=== PATIENT | male | born 2000 | race African-American/Black ===

== ENCOUNTER 2022-10-30 10:09 | Inpatient (IN) | payer OTHER ==
[2022-10-30 11:09] VITALS: BMI 21.9
[2022-10-30] MEDS ORDERED: IBUPROFEN 600 MG TABLET (FP) PO PRN (12:57)
[2022-10-30] MEDS ORDERED: ONDANSETRON *ODT* 4 MG TABLET SL PRN (12:57)
[2022-10-30] MEDS ORDERED: DICYCLOMINE HCL 10 MG CAPSULE PO PRN (12:57)
[2022-10-30] MEDS ORDERED: MAGNESIUM HYDROX 2400MG/30ML ORAL SUSPENSION 30 ML CUP PO PRN (12:57)
[2022-10-30] MEDS ORDERED: IBUPROFEN 400 MG TABLET (FP) PO PRN (12:57)
[2022-10-30] MEDS ORDERED: ACETAMINOPHEN 325 MG TABLET (FP) PO PRN (12:57)
[2022-10-30] MEDS ORDERED: BISMUTH SUBSALICYLATE 524 MG/30 ML PO PRN (12:57)
[2022-10-30] MEDS ORDERED: BENZONATATE 200 MG CAPSULE PO PRN (12:57)
[2022-10-30] MEDS ORDERED: BENZOCAINE/MENTHOL (CHLORASEPTIC ) LOZENGE MM PRN (12:57)
[2022-10-30] MEDS ORDERED: NALOXONE HCL 0.4 MG/ML VIAL IM PRN (12:57)
[2022-10-30] MEDS ORDERED: guaiFENesin 600 MG TABLET.ER (FP) PO PRN (12:57)
[2022-10-30] MEDS ORDERED: NALOXONE HCL (KLOXXADO) 8 MG SPRAY NS PRN (12:57)
[2022-10-30] MEDS ORDERED: POLYETHYLENE GLYCOL (HEALTHYLAX) 3350 17 GM PACKET PO PRN (12:57)
[2022-10-30] MEDS ORDERED: MAG HYDROX/AL HYDROX/SIMETH 30 ML UNIT-DOSE CUP PO PRN (12:57)
[2022-10-30] MEDS ORDERED: LOPERAMIDE HCL 2 MG CAPSULE PO PRN (12:57)
[2022-10-30] MEDS ORDERED: diazePAM 5 MG TABLET ONE (13:21)
[2022-10-30] MEDS: diazePAM 5 MG TABLET PO PRN ×2 (13:23→19:52)
[2022-10-30] MEDS ORDERED: ONDANSETRON *ODT* 4 MG TABLET ONE (13:34)
[2022-10-30] MEDS: diazePAM 5 MG TABLET PO SCH ×2 (17:04→22:08)
[2022-10-30] MEDS: THIAMINE HCL 100 MG TABLET (FP) PO SCH (22:07)
[2022-10-30] MEDS: MELATONIN 5 MG TABLETS PO SCH (22:07)
[2022-10-31] MEDS: diazePAM 5 MG TABLET PO SCH ×4 (05:28→22:02)
[2022-10-31] MEDS: PRENATAL VITAMINS W/ FOLIC ACID TABLET (FP) PO SCH (10:31)
[2022-10-31 11:42] LABS: CHLORIDE 105 mmol/L (98-107); POTASSIUM 3.8 mmol/L (3.5-5.1); SODIUM 140 mmol/L (136-145)
[2022-10-31 11:44] LABS: ALBUMIN 3.3 g/dl (3.4-5.0); ANION GAP 6 MMOL/L (8-16); CALCIUM 9.2 mg/dL (8.5-10.1); CO2 29 mmol/L (21-32); GLUCOSE,RANDOM 86 mg/dL (74-106)
[2022-10-31 11:45] LABS: BLOOD UREA NITROGEN 3.3 mg/dL (7-18); HEMATOCRIT 46.6 % (35.4-49); HEMOGLOBIN 15.1 GM/dL (11.7-16.9); MCH 31.8 pg (25.7-33.7); MCHC 32.4 g/dl (32.0-35.9); MEAN CELL VOLUME 98.1 fl (80-96); MEAN PLT VOLUME 7.1 fl (7.5-11.1); PLATELET COUNT 279 10^3/uL (134-434); RBC 4.76 M/mm3 (4.00-5.60); RDW 14.3 % (11.9-15.9); WHITE BLOOD COUNT 2.9 K/mm3 (4.0-10.0)
[2022-10-31 11:47] LABS: SGPT/ALT 91 U/L (13-61)
[2022-10-31 11:48] LABS: CREATININE 0.9 mg/dL (0.55-1.3); SGOT/AST 184 U/L (15-37)
[2022-10-31 11:49] LABS: BILIRUBIN,TOTAL 1.9 mg/dL (0.2-1); TOT PROT 7.1 g/dl (6.4-8.2)
[2022-10-31 11:50] LABS: ALK PHOS 129 U/L (45-117)
[2022-10-31] MEDS ORDERED: PNEUMOC 20-VAL CONJ-DIP CRM/PF 0.5 ML SYRINGE IM ONE (12:00)
[2022-10-31] MEDS: THIAMINE HCL 100 MG TABLET (FP) PO SCH (22:02)
[2022-10-31] MEDS: MELATONIN 5 MG TABLETS PO SCH (22:03)
[2022-11-01] MEDS: diazePAM 5 MG TABLET PO SCH ×3 (05:14→22:01)
[2022-11-01] MEDS: hydrOXYzine PAMOATE 25 MG CAPSULE (FP) PO PRN ×2 (05:16→10:19)
[2022-11-01] MEDS: METHOCARBAMOL 500 MG TABLET PO PRN (05:16)
[2022-11-01] MEDS: PRENATAL VITAMINS W/ FOLIC ACID TABLET (FP) PO SCH (10:19)
[2022-11-01] MEDS: diazePAM 5 MG TABLET PO PRN (10:19)
[2022-11-01] MEDS: THIAMINE HCL 100 MG TABLET (FP) PO SCH (22:00)
[2022-11-01] MEDS: MELATONIN 5 MG TABLETS PO SCH (22:01)
[2022-11-02] MEDS: diazePAM 5 MG TABLET PO SCH ×2 (05:27→17:28)
[2022-11-02] MEDS: hydrOXYzine PAMOATE 25 MG CAPSULE (FP) PO PRN (09:37)
[2022-11-02] MEDS: METHOCARBAMOL 500 MG TABLET PO PRN (09:37)
[2022-11-02] MEDS: PRENATAL VITAMINS W/ FOLIC ACID TABLET (FP) PO SCH (09:37)
[2022-11-02 12:22] LABS: POTASSIUM 4.1 mmol/L (3.5-5.1)
[2022-11-02 12:49] LABS: CREATININE 0.8 mg/dL (0.55-1.3)
[2022-11-02 12:53] LABS: ALBUMIN 2.9 g/dl (3.4-5.0)
[2022-11-02 12:54] LABS: BLOOD UREA NITROGEN 4.7 mg/dL (7-18); CALCIUM 8.4 mg/dL (8.5-10.1); TOT PROT 6.4 g/dl (6.4-8.2)
[2022-11-02 12:56] LABS: BILIRUBIN,TOTAL 0.8 mg/dL (0.2-1)
[2022-11-02] MEDS: MELATONIN 5 MG TABLETS PO SCH (22:00)
[2022-11-02] MEDS: THIAMINE HCL 100 MG TABLET (FP) PO SCH (22:00)
[2022-11-03] MEDS ORDERED: diazePAM 5 MG TABLET PO ONE (06:00)
[2022-11-03 09:07] VITALS: BP 137/66; PULSE 87; RESP 18; TEMP 97.9
[2022-11-03] MEDS: hydrOXYzine PAMOATE 25 MG CAPSULE (FP) PO PRN (10:02)
[2022-11-03] MEDS: PRENATAL VITAMINS W/ FOLIC ACID TABLET (FP) PO SCH (10:02)
== END 2022-11-03 11:15 | disposition home or self-care (01) | DRG 775 ==
LOC: YASAS 10:09 → Y6N 13:27
PROVIDERS: ADMIT Allergy & Immunology; ATTEND Surgery
PROC: HZ2ZZZZ Detoxification Services for Substance Abuse Treatment (ICD-10-PCS; principal; 2022-10-30)
DX: F10.230 Alcohol dependence with withdrawal, uncomplicated (principal); F41.9 Anxiety disorder, unspecified; M54.50 Low back pain, unspecified; G89.29 Other chronic pain; Z87.19 Personal history of other diseases of the digestive system
CPT/HCPCS: 36415; 80053; 80307; 85027; 86780; 87635; 87811; 90677; Q0162

== ENCOUNTER 2022-11-07 10:13 | Inpatient (IN) | payer OTHER ==
[2022-11-07 11:01] VITALS: BMI 21.8
[2022-11-07] MEDS ORDERED: DICYCLOMINE HCL 10 MG CAPSULE PO PRN (11:26)
[2022-11-07] MEDS ORDERED: IBUPROFEN 600 MG TABLET (FP) PO PRN (11:26)
[2022-11-07] MEDS ORDERED: NALOXONE HCL 0.4 MG/ML VIAL IM PRN (11:26)
[2022-11-07] MEDS ORDERED: MAGNESIUM HYDROX 2400MG/30ML ORAL SUSPENSION 30 ML CUP PO PRN (11:26)
[2022-11-07] MEDS ORDERED: IBUPROFEN 400 MG TABLET (FP) PO PRN (11:26)
[2022-11-07] MEDS ORDERED: ONDANSETRON *ODT* 4 MG TABLET SL PRN (11:26)
[2022-11-07] MEDS ORDERED: METHOCARBAMOL 500 MG TABLET PO PRN (11:26)
[2022-11-07] MEDS ORDERED: BENZOCAINE/MENTHOL (CHLORASEPTIC ) LOZENGE MM PRN (11:26)
[2022-11-07] MEDS ORDERED: NALOXONE HCL (KLOXXADO) 8 MG SPRAY NS PRN (11:26)
[2022-11-07] MEDS ORDERED: MAG HYDROX/AL HYDROX/SIMETH 30 ML UNIT-DOSE CUP PO PRN (11:26)
[2022-11-07] MEDS ORDERED: POLYETHYLENE GLYCOL (HEALTHYLAX) 3350 17 GM PACKET PO PRN (11:26)
[2022-11-07] MEDS ORDERED: ACETAMINOPHEN 325 MG TABLET (FP) PO PRN (11:26)
[2022-11-07] MEDS ORDERED: hydrOXYzine PAMOATE 25 MG CAPSULE (FP) PO PRN (11:26)
[2022-11-07] MEDS ORDERED: BISMUTH SUBSALICYLATE 262 MG/15 ML BTL PO PRN (11:26)
[2022-11-07] MEDS ORDERED: BENZONATATE 200 MG CAPSULE PO PRN (11:26)
[2022-11-07] MEDS ORDERED: guaiFENesin 600 MG TABLET.ER (FP) PO PRN (11:26)
[2022-11-07] MEDS ORDERED: LOPERAMIDE HCL 2 MG CAPSULE PO PRN (11:26)
[2022-11-07] MEDS ORDERED: THIAMINE HCL 100 MG TABLET (FP) PO SCH (22:00)
[2022-11-07] MEDS ORDERED: MELATONIN 5 MG TABLETS PO SCH (22:00)
[2022-11-08] MEDS ORDERED: PRENATAL VITAMINS W/ FOLIC ACID TABLET (FP) PO SCH (10:00)
[2022-11-08 10:44] LABS: HEMATOCRIT 44.7 % (35.4-49); HEMOGLOBIN 14.7 GM/dL (11.7-16.9); MCHC 32.8 g/dl (32.0-35.9); MEAN CELL VOLUME 97.4 fl (80-96); MEAN PLT VOLUME 7.2 fl (7.5-11.1); PLATELET COUNT 360 10^3/uL (134-434); RBC 4.59 M/mm3 (4.00-5.60); RDW 14.4 % (11.9-15.9); WHITE BLOOD COUNT 3.7 K/mm3 (4.0-10.0)
[2022-11-08 10:45] LABS: POTASSIUM 4.3 mmol/L (3.5-5.1)
[2022-11-08 10:55] LABS: BLOOD UREA NITROGEN 6.2 mg/dL (7-18); CALCIUM 9.2 mg/dL (8.5-10.1)
[2022-11-08 10:59] LABS: TOT PROT 7.6 g/dl (6.4-8.2)
[2022-11-08 11:00] LABS: BILIRUBIN,TOTAL 1.2 mg/dL (0.2-1)
[2022-11-08 11:01] LABS: ALBUMIN 3.5 g/dl (3.4-5.0)
[2022-11-08 12:59] VITALS: BP 127/77; PULSE 64; RESP 18; TEMP 97.1
== END 2022-11-08 02:47 | disposition other institution (70) | DRG 775 ==
LOC: YASAS 10:13 → Y3N 11:52
PROVIDERS: ADMIT Allergy & Immunology; ATTEND Surgery
PROC: HZ2ZZZZ Detoxification Services for Substance Abuse Treatment (ICD-10-PCS; principal; 2022-11-07)
DX: F10.20 Alcohol dependence, uncomplicated (principal); D72.819 Decreased white blood cell count, unspecified; R74.8 Abnormal levels of other serum enzymes; Z87.19 Personal history of other diseases of the digestive system; Z87.891 Personal history of nicotine dependence
CPT/HCPCS: 36415; 80053; 85027; 86780; 87635; 87811; 93005; 93010

== ENCOUNTER 2022-11-08 14:55 | Inpatient (IN) | payer OTHER ==
[2022-11-08] MEDS ORDERED: BENZOCAINE/MENTHOL (CHLORASEPTIC ) LOZENGE MM PRN (17:04)
[2022-11-08] MEDS ORDERED: P-EPHED 60MG/TRIPROLIDI 2.5MG TABLET PO PRN (17:04)
[2022-11-08] MEDS ORDERED: COLLOIDAL OATMEAL 1 BAR EACH TP PRN (17:04)
[2022-11-08] MEDS ORDERED: MAGNESIUM HYDROX 2400MG/30ML ORAL SUSPENSION 30 ML CUP PO PRN (17:04)
[2022-11-08] MEDS ORDERED: BENZONATATE 200 MG CAPSULE PO PRN (17:04)
[2022-11-08] MEDS ORDERED: guaiFENesin 600 MG TABLET.ER (FP) PO PRN (17:04)
[2022-11-08] MEDS ORDERED: ACETAMINOPHEN 325 MG TABLET (FP) PO PRN (17:04)
[2022-11-08] MEDS ORDERED: IBUPROFEN 400 MG TABLET (FP) PO PRN (17:04)
[2022-11-08] MEDS ORDERED: MAG HYDROX/AL HYDROX/SIMETH 30 ML UNIT-DOSE CUP PO PRN (17:04)
[2022-11-08] MEDS ORDERED: IBUPROFEN 600 MG TABLET (FP) PO PRN (17:04)
[2022-11-08] MEDS ORDERED: AMMONIUM LACTATE 12% LOTION 225 GM BOTTLE TP PRN (17:04)
[2022-11-08] MEDS ORDERED: POLYETHYLENE GLYCOL (HEALTHYLAX) 3350 17 GM PACKET PO PRN (17:04)
[2022-11-08] MEDS ORDERED: LOPERAMIDE HCL 2 MG CAPSULE PO PRN (17:04)
[2022-11-08] MEDS: MELATONIN 5 MG TABLETS PO SCH (21:03)
[2022-11-08] MEDS: THIAMINE HCL 100 MG TABLET (FP) PO SCH (21:03)
[2022-11-09 06:46] VITALS: RESP 18
[2022-11-09] MEDS: PRENATAL VITAMINS W/ FOLIC ACID TABLET (FP) PO SCH (09:27)
[2022-11-09] MEDS: THIAMINE HCL 100 MG TABLET (FP) PO SCH (21:08)
[2022-11-09] MEDS: MELATONIN 5 MG TABLETS PO SCH (21:08)
[2022-11-10] MEDS: PRENATAL VITAMINS W/ FOLIC ACID TABLET (FP) PO SCH (10:19)
[2022-11-10] MEDS: THIAMINE HCL 100 MG TABLET (FP) PO SCH (21:09)
[2022-11-10] MEDS: MELATONIN 5 MG TABLETS PO SCH (21:09)
[2022-11-11] MEDS: PRENATAL VITAMINS W/ FOLIC ACID TABLET (FP) PO SCH (09:46)
[2022-11-11] MEDS: MELATONIN 5 MG TABLETS PO SCH (21:13)
[2022-11-11] MEDS: THIAMINE HCL 100 MG TABLET (FP) PO SCH (21:14)
[2022-11-12] MEDS: PRENATAL VITAMINS W/ FOLIC ACID TABLET (FP) PO SCH (09:38)
[2022-11-12] MEDS: THIAMINE HCL 100 MG TABLET (FP) PO SCH (21:08)
[2022-11-12] MEDS: MELATONIN 5 MG TABLETS PO SCH (21:08)
[2022-11-13] MEDS: PRENATAL VITAMINS W/ FOLIC ACID TABLET (FP) PO SCH (09:33)
[2022-11-13] MEDS: MELATONIN 5 MG TABLETS PO SCH (21:46)
[2022-11-13] MEDS: THIAMINE HCL 100 MG TABLET (FP) PO SCH (21:46)
[2022-11-14] MEDS: PRENATAL VITAMINS W/ FOLIC ACID TABLET (FP) PO SCH (09:59)
[2022-11-14] MEDS: THIAMINE HCL 100 MG TABLET (FP) PO SCH (21:13)
[2022-11-14] MEDS: MELATONIN 5 MG TABLETS PO SCH (21:13)
[2022-11-15 07:17] VITALS: BP 130/79; PULSE 74; TEMP 97.9
[2022-11-15] MEDS: PRENATAL VITAMINS W/ FOLIC ACID TABLET (FP) PO SCH (09:47)
== END 2022-11-15 10:53 | disposition home or self-care (01) | DRG 772 ==
LOC: YASAS 14:55 → Y5N 14:56
PROVIDERS: ADMIT Allergy & Immunology; ATTEND Psychiatry & Neurology Pain Medicine
PROC: HZ42ZZZ Group Counseling for Substance Abuse Treatment, Cognitive-Behavioral (ICD-10-PCS; principal; 2022-11-08)
DX: F10.20 Alcohol dependence, uncomplicated (principal); R94.5 Abnormal results of liver function studies; D72.819 Decreased white blood cell count, unspecified

== ENCOUNTER 2022-11-24 19:42 | Inpatient (IN) | payer OTHER ==
[2022-11-24 20:31] VITALS: BMI 21.3
[2022-11-24] MEDS ORDERED: DICYCLOMINE HCL 10 MG CAPSULE PO PRN (21:01)
[2022-11-24] MEDS ORDERED: ONDANSETRON *ODT* 4 MG TABLET SL PRN (21:01)
[2022-11-24] MEDS ORDERED: MAGNESIUM HYDROX 2400MG/30ML ORAL SUSPENSION 30 ML CUP PO PRN (21:01)
[2022-11-24] MEDS ORDERED: MAG HYDROX/AL HYDROX/SIMETH 30 ML UNIT-DOSE CUP PO PRN (21:01)
[2022-11-24] MEDS ORDERED: P-EPHED 60MG/TRIPROLIDI 2.5MG TABLET PO PRN (21:01)
[2022-11-24] MEDS ORDERED: POLYETHYLENE GLYCOL (HEALTHYLAX) 3350 17 GM PACKET PO PRN (21:01)
[2022-11-24] MEDS ORDERED: IBUPROFEN 400 MG TABLET (FP) PO PRN (21:01)
[2022-11-24] MEDS ORDERED: BENZONATATE 200 MG CAPSULE PO PRN (21:01)
[2022-11-24] MEDS ORDERED: BENZOCAINE/MENTHOL (CHLORASEPTIC ) LOZENGE MM PRN (21:01)
[2022-11-24] MEDS ORDERED: BISMUTH SUBSALICYLATE 524 MG/30 ML PO PRN (21:01)
[2022-11-24] MEDS ORDERED: ACETAMINOPHEN 325 MG TABLET (FP) PO PRN (21:01)
[2022-11-24] MEDS ORDERED: LOPERAMIDE HCL 2 MG CAPSULE PO PRN (21:01)
[2022-11-24] MEDS ORDERED: guaiFENesin 600 MG TABLET.ER (FP) PO PRN (21:01)
[2022-11-24] MEDS ORDERED: diazePAM 5 MG TABLET ONE (21:19)
[2022-11-24] MEDS: diazePAM 5 MG TABLET PO PRN (21:22)
[2022-11-24] MEDS ORDERED: MELATONIN 5 MG TABLETS PO SCH (22:00)
[2022-11-24] MEDS ORDERED: MELATONIN 5 MG TABLETS ONE (22:10)
[2022-11-24] MEDS: THIAMINE HCL 100 MG TABLET (FP) PO SCH (22:13)
[2022-11-24] MEDS: diazePAM 5 MG TABLET PO SCH (23:00)
[2022-11-25] MEDS: METHOCARBAMOL 500 MG TABLET PO PRN ×2 (00:50→22:23)
[2022-11-25] MEDS: hydrOXYzine PAMOATE 25 MG CAPSULE (FP) PO PRN ×2 (00:50→13:10)
[2022-11-25] MEDS: MELATONIN 5 MG TABLETS PO PRN ×2 (01:52→22:23)
[2022-11-25] MEDS: diazePAM 5 MG TABLET PO SCH ×4 (05:27→22:24)
[2022-11-25] MEDS: PRENATAL VITAMINS W/ FOLIC ACID TABLET (FP) PO SCH (10:05)
[2022-11-25] MEDS: MIRTAZAPINE 15 MG TABLET (FP) PO SCH (22:23)
[2022-11-25] MEDS: THIAMINE HCL 100 MG TABLET (FP) PO SCH (22:23)
[2022-11-26] MEDS: diazePAM 5 MG TABLET PO SCH ×3 (05:11→22:05)
[2022-11-26] MEDS: IBUPROFEN 600 MG TABLET (FP) PO PRN ×2 (05:12→12:24)
[2022-11-26] MEDS: METHOCARBAMOL 500 MG TABLET PO PRN ×2 (05:14→12:24)
[2022-11-26] MEDS: PRENATAL VITAMINS W/ FOLIC ACID TABLET (FP) PO SCH (10:15)
[2022-11-26] MEDS: diazePAM 5 MG TABLET PO PRN (10:16)
[2022-11-26] MEDS: MIRTAZAPINE 15 MG TABLET (FP) PO SCH (22:04)
[2022-11-26] MEDS: THIAMINE HCL 100 MG TABLET (FP) PO SCH (22:04)
[2022-11-26] MEDS: MELATONIN 5 MG TABLETS PO PRN (22:05)
[2022-11-27] MEDS: diazePAM 5 MG TABLET PO SCH ×2 (05:22→17:31)
[2022-11-27] MEDS: IBUPROFEN 600 MG TABLET (FP) PO PRN (05:23)
[2022-11-27] MEDS: METHOCARBAMOL 500 MG TABLET PO PRN ×2 (05:23→22:11)
[2022-11-27] MEDS: PRENATAL VITAMINS W/ FOLIC ACID TABLET (FP) PO SCH (10:14)
[2022-11-27 13:27] VITALS: RESP 18
[2022-11-27 16:10] LABS: POTASSIUM 4.1 mmol/L (3.5-5.1)
[2022-11-27 16:15] LABS: ALBUMIN 3.9 g/dl (3.4-5.0); BASO % 2.1 % (0-2.0); CALCIUM 9.4 mg/dL (8.5-10.1); EOS % 1.1 % (0-4.5); HEMATOCRIT 46.3 % (35.4-49); HEMOGLOBIN 15.4 GM/dL (11.7-16.9); LYMPH % 51.2 % (8-40); MCH 31.3 pg (25.7-33.7); MCHC 33.2 g/dl (32.0-35.9); MEAN CELL VOLUME 94.3 fl (80-96); MONO % 11.2 % (3.8-10.2); NEUT % 34.4 % (42.8-82.8); PLATELET COUNT 331 10^3/uL (134-434); RBC 4.91 M/mm3 (4.00-5.60); WHITE BLOOD COUNT 3.6 K/mm3 (4.0-10.0)
[2022-11-27 16:19] LABS: BILIRUBIN,TOTAL 2.2 mg/dL (0.2-1)
[2022-11-27 16:20] LABS: TOT PROT 7.8 g/dl (6.4-8.2)
[2022-11-27] MEDS: diazePAM 5 MG TABLET PO PRN (20:01)
[2022-11-27] MEDS: hydrOXYzine PAMOATE 25 MG CAPSULE (FP) PO PRN (22:11)
[2022-11-27] MEDS: MIRTAZAPINE 15 MG TABLET (FP) PO SCH (22:11)
[2022-11-27] MEDS: THIAMINE HCL 100 MG TABLET (FP) PO SCH (22:11)
[2022-11-27] MEDS: MELATONIN 5 MG TABLETS PO PRN (22:12)
[2022-11-28] MEDS ORDERED: diazePAM 5 MG TABLET PO ONE (06:00)
[2022-11-28 09:52] VITALS: BP 125/86; PULSE 84; TEMP 97.8
[2022-11-28] MEDS: PRENATAL VITAMINS W/ FOLIC ACID TABLET (FP) PO SCH (10:16)
== END 2022-11-28 11:48 | disposition other institution (70) | DRG 775 ==
LOC: YASAS 19:42 → Y3N 21:34
PROVIDERS: ADMIT Allergy & Immunology; ATTEND Allergy & Immunology
PROC: HZ2ZZZZ Detoxification Services for Substance Abuse Treatment (ICD-10-PCS; principal; 2022-11-24)
DX: F10.230 Alcohol dependence with withdrawal, uncomplicated (principal); F10.24 Alcohol dependence with alcohol-induced mood disorder; F10.282 Alcohol dependence with alcohol-induced sleep disorder; R74.8 Abnormal levels of other serum enzymes; Z87.19 Personal history of other diseases of the digestive system; Z87.891 Personal history of nicotine dependence
CPT/HCPCS: 36415; 80053; 85025; 87635; 87811

== ENCOUNTER 2022-11-28 11:49 | Inpatient (IN) | payer OTHER ==
[2022-11-28] MEDS ORDERED: BENZONATATE 200 MG CAPSULE PO PRN (14:08)
[2022-11-28] MEDS ORDERED: MAGNESIUM HYDROX 2400MG/30ML ORAL SUSPENSION 30 ML CUP PO PRN (14:08)
[2022-11-28] MEDS ORDERED: METHOCARBAMOL 500 MG TABLET PO PRN (14:08)
[2022-11-28] MEDS ORDERED: MAG HYDROX/AL HYDROX/SIMETH 30 ML UNIT-DOSE CUP PO PRN (14:08)
[2022-11-28] MEDS ORDERED: AMMONIUM LACTATE 12% LOTION 225 GM BOTTLE TP PRN (14:08)
[2022-11-28] MEDS ORDERED: guaiFENesin 600 MG TABLET.ER (FP) PO PRN (14:08)
[2022-11-28] MEDS ORDERED: IBUPROFEN 600 MG TABLET (FP) PO PRN (14:08)
[2022-11-28] MEDS ORDERED: NALOXONE HCL (KLOXXADO) 8 MG SPRAY NS PRN (14:08)
[2022-11-28] MEDS ORDERED: LOPERAMIDE HCL 2 MG CAPSULE PO PRN (14:08)
[2022-11-28] MEDS ORDERED: COLLOIDAL OATMEAL 1 BAR EACH TP PRN (14:08)
[2022-11-28] MEDS ORDERED: BENZOCAINE/MENTHOL (CHLORASEPTIC ) LOZENGE MM PRN (14:08)
[2022-11-28] MEDS ORDERED: NALOXONE HCL 0.4 MG/ML VIAL IVPUSH PRN (14:08)
[2022-11-28] MEDS ORDERED: hydrOXYzine PAMOATE 25 MG CAPSULE (FP) PO PRN (14:08)
[2022-11-28] MEDS ORDERED: IBUPROFEN 400 MG TABLET (FP) PO PRN (14:08)
[2022-11-28] MEDS ORDERED: POLYETHYLENE GLYCOL (HEALTHYLAX) 3350 17 GM PACKET PO PRN (14:08)
[2022-11-28] MEDS ORDERED: ACETAMINOPHEN 325 MG TABLET (FP) PO PRN (14:08)
[2022-11-28] MEDS: THIAMINE HCL 100 MG TABLET (FP) PO SCH (21:17)
[2022-11-28] MEDS: MIRTAZAPINE 15 MG TABLET (FP) PO SCH (21:18)
[2022-11-28] MEDS ORDERED: MELATONIN 5 MG TABLETS PO SCH (22:00)
[2022-11-29] MEDS: PRENATAL VITAMINS W/ FOLIC ACID TABLET (FP) PO SCH (09:48)
[2022-11-29] MEDS: LACTULOSE 20 GM/30 ML UDC (FOR ORAL USE ONLY) PO SCH ×2 (13:46→21:25)
[2022-11-29 13:57] LABS: HIV INTERPRETATION NEGATIVE (NEGATIVE)
[2022-11-29] MEDS: MELATONIN 5 MG TABLETS PO SCH (21:25)
[2022-11-29] MEDS: THIAMINE HCL 100 MG TABLET (FP) PO SCH (21:26)
[2022-11-29] MEDS: MIRTAZAPINE 15 MG TABLET (FP) PO SCH (21:26)
[2022-11-30] MEDS: LACTULOSE 20 GM/30 ML UDC (FOR ORAL USE ONLY) PO SCH ×3 (06:13→21:30)
[2022-11-30] MEDS: PRENATAL VITAMINS W/ FOLIC ACID TABLET (FP) PO SCH (09:55)
[2022-11-30] MEDS: THIAMINE HCL 100 MG TABLET (FP) PO SCH (21:30)
[2022-11-30] MEDS: MIRTAZAPINE 15 MG TABLET (FP) PO SCH (21:30)
[2022-11-30] MEDS: MELATONIN 5 MG TABLETS PO SCH (21:30)
[2022-12-01] MEDS: LACTULOSE 20 GM/30 ML UDC (FOR ORAL USE ONLY) PO SCH ×3 (06:17→21:41)
[2022-12-01] MEDS: PRENATAL VITAMINS W/ FOLIC ACID TABLET (FP) PO SCH (09:56)
[2022-12-01] MEDS: MELATONIN 5 MG TABLETS PO SCH (21:41)
[2022-12-01] MEDS: MIRTAZAPINE 15 MG TABLET (FP) PO SCH (21:41)
[2022-12-01] MEDS: THIAMINE HCL 100 MG TABLET (FP) PO SCH (21:41)
[2022-12-02] MEDS: LACTULOSE 20 GM/30 ML UDC (FOR ORAL USE ONLY) PO SCH ×3 (06:06→21:36)
[2022-12-02] MEDS: PRENATAL VITAMINS W/ FOLIC ACID TABLET (FP) PO SCH (09:48)
[2022-12-02] MEDS: THIAMINE HCL 100 MG TABLET (FP) PO SCH (21:35)
[2022-12-02] MEDS: MIRTAZAPINE 15 MG TABLET (FP) PO SCH (21:36)
[2022-12-02] MEDS: MELATONIN 5 MG TABLETS PO SCH (21:36)
[2022-12-03] MEDS: LACTULOSE 20 GM/30 ML UDC (FOR ORAL USE ONLY) PO SCH ×3 (06:13→21:35)
[2022-12-03] MEDS: PRENATAL VITAMINS W/ FOLIC ACID TABLET (FP) PO SCH (09:59)
[2022-12-03] MEDS: THIAMINE HCL 100 MG TABLET (FP) PO SCH (21:35)
[2022-12-03] MEDS: MELATONIN 5 MG TABLETS PO SCH (21:35)
[2022-12-03] MEDS: MIRTAZAPINE 15 MG TABLET (FP) PO SCH (21:36)
[2022-12-04] MEDS: LACTULOSE 20 GM/30 ML UDC (FOR ORAL USE ONLY) PO SCH ×3 (06:42→21:35)
[2022-12-04] MEDS: PRENATAL VITAMINS W/ FOLIC ACID TABLET (FP) PO SCH (09:46)
[2022-12-04] MEDS: THIAMINE HCL 100 MG TABLET (FP) PO SCH (21:34)
[2022-12-04] MEDS: MELATONIN 5 MG TABLETS PO SCH (21:34)
[2022-12-04] MEDS: MIRTAZAPINE 15 MG TABLET (FP) PO SCH (21:35)
[2022-12-05] MEDS: LACTULOSE 20 GM/30 ML UDC (FOR ORAL USE ONLY) PO SCH ×3 (06:34→21:48)
[2022-12-05] MEDS: PRENATAL VITAMINS W/ FOLIC ACID TABLET (FP) PO SCH (09:50)
[2022-12-05] MEDS: MELATONIN 5 MG TABLETS PO SCH (21:48)
[2022-12-05] MEDS: MIRTAZAPINE 15 MG TABLET (FP) PO SCH (21:48)
[2022-12-05] MEDS: THIAMINE HCL 100 MG TABLET (FP) PO SCH (21:48)
[2022-12-06] MEDS: LACTULOSE 20 GM/30 ML UDC (FOR ORAL USE ONLY) PO SCH (06:50)
[2022-12-06] MEDS: PRENATAL VITAMINS W/ FOLIC ACID TABLET (FP) PO SCH (09:44)
[2022-12-06 11:10] LABS: POTASSIUM 4.7 mmol/L (3.5-5.1)
[2022-12-06 11:19] LABS: ALBUMIN 3.1 g/dl (3.4-5.0); BLOOD UREA NITROGEN 6.2 mg/dL (7-18)
[2022-12-06 11:24] LABS: BILIRUBIN,TOTAL 0.5 mg/dL (0.2-1); TOT PROT 6.8 g/dl (6.4-8.2)
[2022-12-06 12:36] LABS: EOS % 1.2 % (0-4.5); HEMATOCRIT 40.6 % (35.4-49); HEMOGLOBIN 13.6 GM/dL (11.7-16.9); LYMPH % 38.2 % (8-40); MCH 31.4 pg (25.7-33.7); MCHC 33.4 g/dl (32.0-35.9); MEAN PLT VOLUME 7.8 fl (7.5-11.1); MONO % 12.3 % (3.8-10.2); NEUT % 47.3 % (42.8-82.8); PLATELET COUNT 341 10^3/uL (134-434); RBC 4.32 M/mm3 (4.00-5.60); RDW 14.5 % (11.9-15.9); WHITE BLOOD COUNT 5.6 K/mm3 (4.0-10.0)
[2022-12-06 12:42] LABS: INR 0.95 (0.83-1.09)
[2022-12-06] MEDS: MIRTAZAPINE 15 MG TABLET (FP) PO SCH (21:50)
[2022-12-06] MEDS: MELATONIN 5 MG TABLETS PO SCH (21:50)
[2022-12-06] MEDS: THIAMINE HCL 100 MG TABLET (FP) PO SCH (21:50)
[2022-12-07] MEDS: PRENATAL VITAMINS W/ FOLIC ACID TABLET (FP) PO SCH (09:45)
[2022-12-07] MEDS: MELATONIN 5 MG TABLETS PO SCH (21:54)
[2022-12-07] MEDS: THIAMINE HCL 100 MG TABLET (FP) PO SCH (21:54)
[2022-12-07] MEDS: MIRTAZAPINE 15 MG TABLET (FP) PO SCH (21:54)
[2022-12-08] MEDS: PRENATAL VITAMINS W/ FOLIC ACID TABLET (FP) PO SCH (09:50)
[2022-12-08] MEDS: MELATONIN 5 MG TABLETS PO SCH (21:31)
[2022-12-08] MEDS: MIRTAZAPINE 15 MG TABLET (FP) PO SCH (21:31)
[2022-12-08] MEDS: THIAMINE HCL 100 MG TABLET (FP) PO SCH (21:31)
[2022-12-09] MEDS: PRENATAL VITAMINS W/ FOLIC ACID TABLET (FP) PO SCH (09:59)
[2022-12-09] MEDS: MIRTAZAPINE 15 MG TABLET (FP) PO SCH (21:36)
[2022-12-09] MEDS: THIAMINE HCL 100 MG TABLET (FP) PO SCH (21:36)
[2022-12-09] MEDS: MELATONIN 5 MG TABLETS PO SCH (21:37)
[2022-12-10 07:18] VITALS: RESP 18; TEMP 96.9
[2022-12-10] MEDS: PRENATAL VITAMINS W/ FOLIC ACID TABLET (FP) PO SCH (09:41)
[2022-12-10] MEDS: THIAMINE HCL 100 MG TABLET (FP) PO SCH (22:04)
[2022-12-10] MEDS: MIRTAZAPINE 15 MG TABLET (FP) PO SCH (22:04)
[2022-12-10] MEDS: MELATONIN 5 MG TABLETS PO SCH (22:04)
[2022-12-11] MEDS: PRENATAL VITAMINS W/ FOLIC ACID TABLET (FP) PO SCH (09:59)
[2022-12-11] MEDS: THIAMINE HCL 100 MG TABLET (FP) PO SCH (21:06)
[2022-12-11] MEDS: MELATONIN 5 MG TABLETS PO SCH (21:06)
[2022-12-11] MEDS: MIRTAZAPINE 15 MG TABLET (FP) PO SCH (21:06)
[2022-12-12 09:15] VITALS: BP 115/75; PULSE 79
[2022-12-12] MEDS: PRENATAL VITAMINS W/ FOLIC ACID TABLET (FP) PO SCH (09:32)
== END 2022-12-12 09:38 | disposition home or self-care (01) | DRG 772 ==
LOC: YASAS 11:49 → Y3E 11:51
PROVIDERS: ADMIT Allergy & Immunology; ATTEND Psychiatry & Neurology Pain Medicine
PROC: HZ42ZZZ Group Counseling for Substance Abuse Treatment, Cognitive-Behavioral (ICD-10-PCS; principal; 2022-11-28)
DX: F10.20 Alcohol dependence, uncomplicated (principal); F41.9 Anxiety disorder, unspecified; E72.20 Disorder of urea cycle metabolism, unspecified; G47.00 Insomnia, unspecified; R74.01 Elevation of levels of liver transaminase levels; R74.8 Abnormal levels of other serum enzymes; Z87.891 Personal history of nicotine dependence; Z87.19 Personal history of other diseases of the digestive system
CPT/HCPCS: 36415; 80053; 82140; 85025; 85610; 86803; 87389

== ENCOUNTER 2023-07-07 11:47 | Inpatient (IN) | payer BC, OTHER ==
[2023-07-07 13:22] VITALS: BMI 24.9
[2023-07-07] MEDS ORDERED: BENZONATATE 200 MG CAPSULE PO PRN (14:07)
[2023-07-07] MEDS ORDERED: POLYETHYLENE GLYCOL (HEALTHYLAX) 3350 17 GM PACKET PO PRN (14:07)
[2023-07-07] MEDS ORDERED: IBUPROFEN 400 MG TABLET (FP) PO PRN (14:07)
[2023-07-07] MEDS ORDERED: LOPERAMIDE HCL 2 MG CAPSULE PO PRN (14:07)
[2023-07-07] MEDS ORDERED: BISMUTH SUBSALICYLATE 524 MG/30 ML PO PRN (14:07)
[2023-07-07] MEDS ORDERED: DICYCLOMINE HCL 10 MG CAPSULE PO PRN (14:07)
[2023-07-07] MEDS ORDERED: ONDANSETRON *ODT* 4 MG TABLET SL PRN (14:07)
[2023-07-07] MEDS ORDERED: MAG HYDROX/AL HYDROX/SIMETH 30 ML UNIT-DOSE CUP PO PRN (14:07)
[2023-07-07] MEDS ORDERED: MAGNESIUM HYDROX 2400MG/30ML ORAL SUSPENSION 30 ML CUP PO PRN (14:07)
[2023-07-07] MEDS: hydrOXYzine PAMOATE 25 MG CAPSULE (FP) PO PRN (17:38)
[2023-07-07] MEDS: THIAMINE HCL 100 MG TABLET (FP) PO SCH (22:08)
[2023-07-07] MEDS: MELATONIN 5 MG TABLETS PO SCH (22:08)
[2023-07-08] MEDS: ACETAMINOPHEN 325 MG TABLET (FP) PO PRN (05:19)
[2023-07-08] MEDS: METHOCARBAMOL 500 MG TABLET PO PRN (05:19)
[2023-07-08] MEDS: BENZOCAINE/MENTHOL (CHLORASEPTIC ) LOZENGE MM PRN (05:19)
[2023-07-08] MEDS: PRENATAL VITAMINS W/ FOLIC ACID TABLET (FP) PO SCH (11:00)
[2023-07-08] MEDS: P-EPHED 60MG/TRIPROLIDI 2.5MG TABLET PO PRN (11:03)
[2023-07-08] MEDS: IBUPROFEN 600 MG TABLET (FP) PO PRN (13:30)
[2023-07-08] MEDS: guaiFENesin 600 MG TABLET.ER (FP) PO PRN (13:32)
[2023-07-08 14:59] LABS: HEMATOCRIT 44.1 % (35.4-49); HEMOGLOBIN 14.4 GM/dL (11.7-16.9); MCH 28.3 pg (25.7-33.7); MCHC 32.6 g/dl (32.0-35.9); MEAN CELL VOLUME 86.8 fl (80-96); MEAN PLT VOLUME 7.4 fl (7.5-11.1); PLATELET COUNT 263 10^3/uL (134-434); RBC 5.08 M/mm3 (4.00-5.60); RDW 16.2 % (11.9-15.9); WHITE BLOOD COUNT 4.5 K/mm3 (4.0-10.0)
[2023-07-08 15:00] LABS: POTASSIUM 3.4 mmol/L (3.5-5.1)
[2023-07-08 15:06] LABS: CALCIUM 9.3 mg/dL (8.5-10.1)
[2023-07-08 15:07] LABS: ALBUMIN 3.1 g/dl (3.4-5.0)
[2023-07-08 15:09] LABS: BILIRUBIN,TOTAL 0.8 mg/dL (0.2-1)
[2023-07-09] MEDS: POTASSIUM CHLORIDE ORAL LIQUID 20 MEQ/15 ML PO SCH (10:07)
[2023-07-09] MEDS: diazePAM 5 MG TABLET PO SCH (13:09)
[2023-07-09] MEDS: GABAPENTIN 100 MG CAPSULE PO SCH (13:09)
[2023-07-09] MEDS: MIRTAZAPINE 15 MG TABLET (FP) PO SCH (22:07)
[2023-07-10] MEDS: diazePAM 5 MG TABLET PO SCH (05:18)
[2023-07-11] MEDS: diazePAM 5 MG TABLET PO ONE (05:18)
[2023-07-11 09:15] VITALS: BP 113/79; PULSE 81; RESP 18; TEMP 97.6
== END 2023-07-11 09:58 | disposition home or self-care (01) | DRG 775 ==
LOC: YASAS 11:47 → UNDOADMIN 15:01 → Y6N 15:01 → UNDODISIN 07-11 09:58
PROVIDERS: ADMIT Allergy & Immunology; ATTEND Surgery
PROC: HZ2ZZZZ Detoxification Services for Substance Abuse Treatment (ICD-10-PCS; principal; 2023-07-07)
DX: F10.230 Alcohol dependence with withdrawal, uncomplicated (principal); F12.20 Cannabis dependence, uncomplicated; F10.282 Alcohol dependence with alcohol-induced sleep disorder; F10.24 Alcohol dependence with alcohol-induced mood disorder; F41.8 Other specified anxiety disorders; E87.6 Hypokalemia; R74.8 Abnormal levels of other serum enzymes; Z87.891 Personal history of nicotine dependence
CPT/HCPCS: 36415; 80053; 80305; 80307; 83036; 84132; 84450; 85027; 86780; 93005; 93010

== ENCOUNTER 2024-04-23 22:52 | Inpatient (IN) | payer BC, OTHER ==
[2024-04-23 23:10] VITALS: BMI 26.3
[2024-04-23] MEDS ORDERED: IBUPROFEN 400 MG TABLET (FP) PO PRN (23:24)
[2024-04-23] MEDS ORDERED: NICOTINE POLACRILEX 2 MG LOZENGE BC PRN (23:24)
[2024-04-23] MEDS ORDERED: MAGNESIUM HYDROX 2400MG/30ML ORAL SUSPENSION 30 ML CUP PO PRN (23:24)
[2024-04-23] MEDS ORDERED: guaiFENesin 600 MG TABLET.ER (FP) PO PRN (23:24)
[2024-04-23] MEDS ORDERED: POLYETHYLENE GLYCOL (HEALTHYLAX) 3350 17 GM PACKET PO PRN (23:24)
[2024-04-23] MEDS ORDERED: NALOXONE (NARCAN) HCL 4 MG/0.1 ML SPRAY NS PRN (23:24)
[2024-04-23] MEDS ORDERED: IBUPROFEN 600 MG TABLET (FP) PO PRN (23:24)
[2024-04-23] MEDS ORDERED: DICYCLOMINE HCL 10 MG CAPSULE PO PRN (23:24)
[2024-04-23] MEDS ORDERED: LOPERAMIDE HCL 2 MG CAPSULE PO PRN (23:24)
[2024-04-23] MEDS ORDERED: BISMUTH SUBSALICYLATE 524 MG/30 ML PO PRN (23:24)
[2024-04-23] MEDS ORDERED: ACETAMINOPHEN 325 MG TABLET (FP) PO PRN (23:24)
[2024-04-23] MEDS ORDERED: BENZONATATE 200 MG CAPSULE PO PRN (23:24)
[2024-04-23] MEDS ORDERED: MAG HYDROX/AL HYDROX/SIMETH 30 ML UNIT-DOSE CUP PO PRN (23:24)
[2024-04-23] MEDS ORDERED: BENZOCAINE/MENTHOL (CHLORASEPTIC ) LOZENGE MM PRN (23:24)
[2024-04-23] MEDS ORDERED: chlordiazePOXIDE HCL 25 MG CAPSULE ONE (23:48)
[2024-04-24] MEDS: chlordiazePOXIDE HCL 25 MG CAPSULE PO SCH
[2024-04-24] MEDS: hydrOXYzine PAMOATE 25 MG CAPSULE (FP) PO PRN (00:59)
[2024-04-24] MEDS: METHOCARBAMOL 500 MG TABLET PO PRN (00:59)
[2024-04-24] MEDS: FLU VACCINE (FLULAVAL) PF 45 MCG/0.5 ML SYRINGE 2024-2025 IM ONE (06:25)
[2024-04-24] MEDS: chlordiazePOXIDE HCL 25 MG CAPSULE PO PRN (09:28)
[2024-04-24] MEDS: PRENATAL VITAMINS W/ FOLIC ACID TABLET (FP) PO SCH (09:35)
[2024-04-24] MEDS: NICOTINE 14 MG/24 HOURS TOPICAL PATCH TD SCH (09:35)
[2024-04-24 11:40] LABS: POTASSIUM 3.7 mmol/L (3.5-5.1)
[2024-04-24 11:43] LABS: ALBUMIN 3.7 g/dl (3.4-5.0); BLOOD UREA NITROGEN 5.5 mg/dL (7-18)
[2024-04-24 11:46] LABS: CREATININE 1.1 mg/dL (0.55-1.3)
[2024-04-24 11:47] LABS: BILIRUBIN,TOTAL 1.8 mg/dL (0.2-1); HEMATOCRIT 45.9 % (35.4-49); HEMOGLOBIN 14.7 GM/dL (11.7-16.9); MCH 28.6 pg (25.7-33.7); MCHC 32.1 g/dl (32.0-35.9); PLATELET COUNT 232 10^3/uL (134-434); RBC 5.16 M/mm3 (4.00-5.60); RDW 15.1 % (11.9-15.9); WHITE BLOOD COUNT 4.2 K/mm3 (4.0-10.0)
[2024-04-24 11:48] LABS: TOT PROT 7.1 g/dl (6.4-8.2)
[2024-04-24 12:43] LABS: HIV INTERPRETATION NEGATIVE (NEGATIVE)
[2024-04-24] MEDS: QUEtiapine FUMARATE 50 MG TABLET PO SCH (22:00)
[2024-04-24] MEDS: THIAMINE 100 MG TABLET PO SCH (22:00)
[2024-04-24] MEDS: MIRTAZAPINE 15 MG TABLET (FP) PO SCH (22:00)
[2024-04-24] MEDS: MELATONIN 5 MG TABLETS PO SCH (22:00)
[2024-04-25] MEDS: chlordiazePOXIDE HCL 25 MG CAPSULE PO SCH (05:28)
[2024-04-25] MEDS: ONDANSETRON *ODT* 4 MG TABLET SL PRN (10:38)
[2024-04-25] MEDS: QUEtiapine FUMARATE 100 MG TABLET (FP) PO SCH (21:52)
[2024-04-25] MEDS: hydrOXYzine PAMOATE 50 MG CAPSULE (FP) PO PRN (21:53)
[2024-04-26] MEDS ORDERED: chlordiazePOXIDE HCL 10 MG CAPSULE PO PRN
[2024-04-26] MEDS: chlordiazePOXIDE HCL 10 MG CAPSULE PO SCH (05:25)
[2024-04-26 21:09] VITALS: TEMP 97.3
[2024-04-27] MEDS: chlordiazePOXIDE HCL 10 MG CAPSULE PO SCH (05:20)
[2024-04-27 06:18] VITALS: RESP 18
[2024-04-27] MEDS: NALOXONE (NYS OPIOID OVERDOSE PROGRAM) 4 MG/0.1 ML SPRAY NS SCH (09:20)
[2024-04-27 09:35] VITALS: BP 149/84; PULSE 89
[2024-04-28] MEDS ORDERED: chlordiazePOXIDE HCL 10 MG CAPSULE PO ONE (05:00)
== END 2024-04-27 09:31 | disposition home or self-care (01) | DRG 897 ==
LOC: YASAS 22:52 → Y3N 23:33
PROVIDERS: ADMIT Allergy & Immunology; ATTEND Allergy & Immunology
PROC: HZ2ZZZZ Detoxification Services for Substance Abuse Treatment (ICD-10-PCS; principal; 2024-04-23)
DX: F10.230 Alcohol dependence with withdrawal, uncomplicated (principal); F12.20 Cannabis dependence, uncomplicated; F17.210 Nicotine dependence, cigarettes, uncomplicated; F10.282 Alcohol dependence with alcohol-induced sleep disorder; F10.24 Alcohol dependence with alcohol-induced mood disorder; F19.24 Other psychoactive substance dependence with psychoactive substance-induced mood disorder; F41.8 Other specified anxiety disorders; F32.A Depression, unspecified; M54.50 Low back pain, unspecified; G89.29 Other chronic pain
CPT/HCPCS: 36415; 80053; 80307; 85027; 86780; 86803; 87389; 90656; 93005; 93010; G0008; Q0162

== ENCOUNTER 2024-07-20 19:58 | Inpatient (IN) | payer OTHER, BC ==
[2024-07-20 21:05] VITALS: BMI 25.9
[2024-07-20] MEDS ORDERED: NALOXONE (NARCAN) HCL 4 MG/0.1 ML SPRAY NS PRN (23:28)
[2024-07-20] MEDS ORDERED: IBUPROFEN 600 MG TABLET (FP) PO PRN (23:28)
[2024-07-20] MEDS ORDERED: POLYETHYLENE GLYCOL (HEALTHYLAX) 3350 17 GM PACKET PO PRN (23:28)
[2024-07-20] MEDS ORDERED: BENZOCAINE/MENTHOL (CHLORASEPTIC ) LOZENGE MM PRN (23:28)
[2024-07-20] MEDS ORDERED: LOPERAMIDE HCL 2 MG CAPSULE PO PRN (23:28)
[2024-07-20] MEDS ORDERED: IBUPROFEN 400 MG TABLET (FP) PO PRN (23:28)
[2024-07-20] MEDS ORDERED: guaiFENesin 600 MG TABLET.ER (FP) PO PRN (23:28)
[2024-07-20] MEDS ORDERED: BISMUTH SUBSALICYLATE 524 MG/30 ML PO PRN (23:28)
[2024-07-20] MEDS ORDERED: DICYCLOMINE HCL 10 MG CAPSULE PO PRN (23:28)
[2024-07-20] MEDS ORDERED: BENZONATATE 200 MG CAPSULE PO PRN (23:28)
[2024-07-20] MEDS ORDERED: hydrOXYzine PAMOATE 25 MG CAPSULE (FP) PO PRN (23:28)
[2024-07-20] MEDS ORDERED: chlordiazePOXIDE HCL 25 MG CAPSULE PO PRN (23:30)
[2024-07-20] MEDS ORDERED: chlordiazePOXIDE HCL 25 MG CAPSULE ONE (23:50)
[2024-07-20] MEDS: chlordiazePOXIDE HCL 25 MG CAPSULE PO SCH (23:55)
[2024-07-21] MEDS ORDERED: MELATONIN 5 MG TABLETS ONE (00:04)
[2024-07-21 09:12] LABS: POTASSIUM 4.1 mmol/L (3.5-5.1)
[2024-07-21 09:16] LABS: ALBUMIN 3.4 g/dl (3.4-5.0); BLOOD UREA NITROGEN 5.8 mg/dL (7-18); CALCIUM 9.2 mg/dL (8.5-10.1)
[2024-07-21 09:17] LABS: HEMATOCRIT 43.2 % (40.1-51.0); HEMOGLOBIN 13.9 g/dL (13.7-17.5); MCHC 32.2 g/dl (32.3-36.5); MEAN CELL VOLUME 89.1 fl (79.0-92.2); MEAN PLT VOLUME 8.3 fl (9.4-12.4); PLATELET COUNT 415 x10^3/uL (163-337); RDW 14.5 % (11.9-15.3)
[2024-07-21 09:20] LABS: CREATININE 1.1 mg/dL (0.55-1.3)
[2024-07-21 09:21] LABS: BILIRUBIN,TOTAL 1.1 mg/dL (0.2-1)
[2024-07-21] MEDS: PRENATAL VITAMINS W/ FOLIC ACID TABLET (FP) PO SCH (10:14)
[2024-07-21] MEDS: ONDANSETRON *ODT* 4 MG TABLET SL PRN (10:15)
[2024-07-21] MEDS: THIAMINE 100 MG TABLET PO SCH (22:10)
[2024-07-21] MEDS: MELATONIN 5 MG TABLETS PO SCH (22:10)
[2024-07-21] MEDS: QUEtiapine FUMARATE 50 MG TABLET PO SCH (22:11)
[2024-07-21] MEDS: MIRTAZAPINE 15 MG TABLET (FP) PO SCH (22:11)
[2024-07-22] MEDS: chlordiazePOXIDE HCL 25 MG CAPSULE PO SCH (05:46)
[2024-07-22] MEDS: METHOCARBAMOL 500 MG TABLET PO PRN (05:48)
[2024-07-22] MEDS: ACETAMINOPHEN 325 MG TABLET (FP) PO PRN (17:49)
[2024-07-22] MEDS: MAGNESIUM HYDROX 2400MG/30ML ORAL SUSPENSION 30 ML CUP PO PRN (17:51)
[2024-07-23] MEDS ORDERED: chlordiazePOXIDE HCL 10 MG CAPSULE PO PRN
[2024-07-23] MEDS: chlordiazePOXIDE HCL 10 MG CAPSULE PO SCH (05:19)
[2024-07-23 20:48] VITALS: RESP 18
[2024-07-24] MEDS: MAG HYDROX/AL HYDROX/SIMETH 30 ML UNIT-DOSE CUP PO PRN (05:46)
[2024-07-24] MEDS: chlordiazePOXIDE HCL 10 MG CAPSULE PO SCH (05:46)
[2024-07-24 09:18] VITALS: BP 133/85; PULSE 95; TEMP 97.5
[2024-07-25] MEDS ORDERED: chlordiazePOXIDE HCL 10 MG CAPSULE PO ONE (05:00)
== END 2024-07-24 10:37 | disposition home or self-care (01) | DRG 775 ==
LOC: YASAS 19:58 → Y3N 23:40
PROVIDERS: ADMIT Allergy & Immunology; ATTEND Allergy & Immunology
PROC: HZ2ZZZZ Detoxification Services for Substance Abuse Treatment (ICD-10-PCS; principal; 2024-07-19)
DX: F10.230 Alcohol dependence with withdrawal, uncomplicated (principal); F12.20 Cannabis dependence, uncomplicated; F17.210 Nicotine dependence, cigarettes, uncomplicated; F10.282 Alcohol dependence with alcohol-induced sleep disorder; F10.280 Alcohol dependence with alcohol-induced anxiety disorder; F10.24 Alcohol dependence with alcohol-induced mood disorder; F41.8 Other specified anxiety disorders; R74.8 Abnormal levels of other serum enzymes; G47.00 Insomnia, unspecified; Z87.19 Personal history of other diseases of the digestive system
CPT/HCPCS: 36415; 80053; 80305; 80307; 85027; 86780; 93005; 93010; Q0162